=== PATIENT | female | born 1950 | race Caucasian/White ===

== ENCOUNTER 2018-04-04 00:12 | Emergency (ER) | payer MEDICARE ==
[~2018-04-04] VITALS: Ht 170.2 cm; Wt 61.0 kg
[~2018-04-04 00:12] MED LIST: INDO25OR PO; LEVO50TA5 PO; LEVO750T6 PO; OMEP-110 PO; OXYC-302 PO; ZOLM2.5T5 PO
[2018-04-04] MEDS ORDERED: DIPHENHYDRAMINE 50 MG/ML, 1ML IVPush ONE (01:00)
[2018-04-04] MEDS ORDERED: PROCHLORPERAZINE 5 MG/ML, 2ML IVPush ONE (01:00)
[2018-04-04] MEDS ORDERED: KETOROLAC 30 MG/1 ML IVPush ONE (01:00)
[2018-04-04] MEDS ORDERED: SODIUM CHLORIDE 0.9% 1,000ML IVBOLUS ONE (01:00)
[2018-04-04] MEDS ORDERED: SODIUM CHLORIDE FLUSH 10ML SYR IVF ONE (01:00)
[2018-04-04] MEDS ORDERED: PROCHLORPERAZINE 5 MG/ML, 2ML ONE (01:35)
[2018-04-04] MEDS ORDERED: DIPHENHYDRAMINE 50 MG/ML, 1ML ONE (01:35)
[2018-04-04] MEDS ORDERED: KETOROLAC 30 MG/1 ML ONE (01:35)
[2018-04-04 02:58] VITALS: BP 108/84
== END 2018-04-04 03:06 | disposition home or self-care (01) ==
LOC: ED 02:11
DX: G43.019 Migraine without aura, intractable, without status migrainosus (principal)
CPT/HCPCS: 96361; 96374; 96375; 99285; J0780; J1200; J1885; J7030

== ENCOUNTER → 2020-02-07 | Outpatient (CLI) | payer MEDICARE | END | disposition home or self-care (01) | LOC: CFH 08:52 | PROVIDERS: ATTEND Internal Medicine Cardiovascular Disease | DX: I47.1 Supraventricular tachycardia (principal); I31.9 Disease of pericardium, unspecified | CPT/HCPCS: 93306 ==

== ENCOUNTER 2020-02-28 10:32 | Outpatient (CLI) | payer MEDICARE | END 2020-02-28 23:59 | disposition home or self-care (01) | LOC: CFH 10:32 | PROVIDERS: ATTEND Internal Medicine Cardiovascular Disease | DX: Z13.6 Encounter for screening for cardiovascular disorders (principal); I25.10 Atherosclerotic heart disease of native coronary artery without angina pectoris; E78.5 Hyperlipidemia, unspecified | CPT/HCPCS: 75571 ==

== ENCOUNTER 2021-03-26 19:12 | Emergency (ER) | payer MEDICARE ==
[~2021-03-26] VITALS: Ht 170.2 cm; Wt 62.4 kg
[~2021-03-26 19:12] MED LIST changes: -OXYC-302 PO; +OXYC1TAB14 PO
[2021-03-26 19:19] VITALS: BP 115/69
--- NOTE | 2021-03-26 19:24 | NUR ---
DOUBLE END TRIMMER: EKG COMPLETED IN TRIAGE
--- NOTE | 2021-03-26 20:25 | NUR ---
PHLEB AT BS.
[2021-03-26 20:32] LABS: BASOPHILS % (AUTO) 1 % (0-1); EOSINOPHILS % (AUTO) 4 % (1-7); LYMPHOCYTES % (AUTO) 25 % (22-44); MEAN CORPUSCULAR HEMOGLOBIN 32.5 pg (27.0-34.8); MEAN CORPUSCULAR HGB CONC 34.4 g/dL (32.4-35.8); MEAN PLATELET VOLUME 8.9 fL (7.4-10.4); MONOCYTES % (AUTO) 12 % (2-9); NEUTROPHILS % (AUTO) 58 % (42-75); PLATELET COUNT 197 x10^3/uL (130-400); RED BLOOD COUNT 4.13 x10^6/uL (3.82-5.3); RED CELL DISTRIBUTION WIDTH 13.2 % (9.6-15.2)
[2021-03-26 20:42] LABS: ALBUMIN 3.6 g/dL (3.4-5.0); ANION GAP 3 mmol/L (5-15); CALCIUM 9.3 mg/dL (8.5-10.1); CHLORIDE 109 mmol/L (98-107); CREATININE 0.77 mg/dL (0.55-1.02)
[2021-03-26 20:45] LABS: TROPONIN I < 0.015 ng/mL (0.000-0.045)
--- NOTE | 2021-03-26 20:51 | NUR ---
PT AWARE OF PENDING LABS. WILL CTM.
== END 2021-03-26 21:20 | disposition home or self-care (01) ==
LOC: ED 19:42
DX: R07.89 Other chest pain (principal); E03.9 Hypothyroidism, unspecified; G43.909 Migraine, unspecified, not intractable, without status migrainosus
CPT/HCPCS: 36415; 71046; 80048; 82040; 84484; 85025; 93005; 99285